=== PATIENT | female | born 1955 | race Caucasian/White ===

== ENCOUNTER 2020-01-17 20:21 | Observation (INO) | payer BC, OTHER ==
--- NOTE | 2020-01-17 20:51 | RAD ---
XR Chest 1 View Portable HISTORY: Chest pain and shortness of breath COMPARISON: None FINDINGS: The heart size is normal. The lungs are well expanded without focal areas of consolidation, pneumothorax or pleural effusions. IMPRESSION: No radiographic evidence of acute cardiopulmonary process.
[2020-01-17 20:54] LABS: #Basophils 0.1 thou/uL (0.0-0.2); #Eosinphils 0.2 thou/uL (0.0-0.7); #Lymphocytes 2.7 thou/uL (1.20-3.40); #Monocytes 0.6 thou/uL (0.11-0.59); #Neutrophils 6.2 thou/uL (1.40-6.50); %Basophils 0.6 % (0.0-1.0); %Eosinophils 2.2 % (0.0-10.0); %Lymphocytes 27.3 % (21.0-51.0); %Monocytes 6.5 % (0.0-10.0); %Neutrophils 63.4 % (42.0-75.0); Hemoglobin 12.8 g/dL (12.0-16.0); Mean Corpuscular HGB CONC 34.7 g/dL (32.0-36.0); Mean Corpuscular Volume 83.6 fL (78.0-98.0); Mean Platelet Volume 6.9 fL (7.4-10.4); Platelet Count 370 thou/uL (130-400); RBC Distribution Width 12.6 % (11.5-14.5); Red Blood Cell (RBC) Count 4.43 mill/uL (4.20-5.40); White Blood Cell (WBC) Count 9.7 thou/uL (4.8-10.8)
[2020-01-17 21:19] LABS: ALT (SGPT) 17 U/L (8-55); AST (SGOT) 17 U/L (5-34); Albumin 4.1 g/dL (3.4-4.8); Alkaline Phosphatase 95 U/L (40-110); Anion Gap 13 mmol/L (10-20); BUN (Urea Nitrogen) 23 mg/dL (9.8-20.1); Bilirubin, Total 0.3 mg/dL (0.2-1.2); CK (CPK) 83 U/L (29-168); Calc. Creatinine Clearance 0 mL/min (70-130); Calcium 8.8 mg/dL (7.8-10.44); Carbon Dioxide 24 mmol/L (23-31); Chloride 106 mmol/L (98-107); Estimated GFR-MDRD 68; Globulin 3.3 g/dL (2.4-3.5); Glucose 100 mg/dL (80-115); Lipase 26 U/L (8-78); Potassium 4.1 mmol/L (3.5-5.1); Protein, Total 7.4 g/dL (6.0-8.3); Sodium 139 mmol/L (136-145)
[2020-01-17 21:48] LABS: Bilirubin Negative (Negative); Blood, Urine 1+ (Negative); Clarity Clear (Clear); Glucose, Urine (Dipstick) Normal (Negative); Ketone, Urine Negative (Negative); Leukocyte 500 Leu/uL (Negative); Nitrite Negative (Negative); Protein, Urine (Dipstick) Negative (Neg-Trace); RBC/HPF 0-3 HPF (0-3); Squamous Epithelial 0-3 HPF (0-3); Urobilinogen Normal mg/dL (Less than 2); WBC/HPF 0-3 HPF (0-3)
[2020-01-17 21:49] LABS: Bacteria/HPF Rare-Few HPF (None Seen)
[2020-01-17] MEDS ORDERED: Nitroglycerin 2% Ointment 1 INCH/1 GM Packet ONE (23:22)
[2020-01-17] MEDS ORDERED: Morphine 2 MG/ML VIAL ONE (23:23)
[2020-01-18] MEDS ORDERED: Acetaminophen 650 MG Suppository PR PRN (00:03)
--- NOTE | 2020-01-18 00:40 | PDOC.HHP ---
Hospitalist HPI - History of Present Illness Chest pain History of Present Illness: Patient presents following an episode of severe chest pain that started at 6pm this afternoon. She states it occurred while she was at work. She describes 10/10 stabbing pain in the left side of her chest that was non-radiating. Denies any associated diaphoresis or breathlessness but reports feeling lightheaded. States her pain lasted 15 minutes. Her pain has been intermittent since arriving to the ED, alternating between a 3/10 and 5/10 in severity. It has fully resolved now that she has received morphine and nitro paste. Pain made worse with deep inspiration at times. No cough or hemoptysis. She recalls having left sided stabbing chest pain early last week that woke her from her sleep and lasted a few minutes. She doesnt remember what time it was and did not take anything for it. Denies any recent long car rides or flights. No cough or hemoptysis. No leg pain or swelling. Recently for the last week she has noticed breathlessness while speaking but no significant sob on exertion. She was brought in via EMS and had an EKG done prior to arrival that showed LBBB, felt to be chronic. She was given 1 nitro SL and 1 inch nitro paste. Reports having a history of a blocked coronary artery but has never had stents placed or had any surgical intervention. ROS: Reports a good appetite. Denies N/V. Has noticed urinary urgency for the last month. States she has incontinence if she doesnt get to the bathroom on time. She denies any saddle anesthesia/paraesthesia. States she has some associated left lower abdominal discomfort. No dysuria or hematuria. Has not had any fevers, chills or sweats. No flank pain. All other review of systems are negative. ED COURSE: EKG on arrival showed Normal sinus rhythm rate of 75 with left axis deviation left bundle branch block which is unchanged from August 2015. CXR: No radiographic evidence of acute cardiopulmonary process. FBC unremarkable. Lipase 26, CK 83, BUN 23, Creat 0.84, GFR 68. LFTs normal. Trop negative. BNP 16. Given morphine 2 mg IV in the ED as well as nitro-bid 1 inch. Admitted for ACS rule out. PAST MEDICAL HISTORY: 1. Asthma. 2. Sleep apnea. 3. Restless leg syndrome. 4. GERD. 5. Migraines. 6. CHF. 7. Hypothyroidism. 8. Hyperlipidemia. 9. Hypertension. PAST SURGICAL HISTORY: 1. Tubal ligation. 2. Hysterectomy. 3. Left rotator cuff surgery x 2. 4. Lymph nodes removed from abdomen due to concern for malignancy (mother had lymphoma), pathology results unremarkable per patient. 5. Left carpal tunnel surgery. SOCIAL HISTORY: Patient lives at home with her . Denies any tobacco use, alcohol consumption or drug use. She is fully independent. FAMILY HISTORY: Her mother is , had a history of lymphoma. ALLERGIES: 1. Iodine contrast. 2. She avoids aspirin due to advice given by Dr. Blackwell who performed multiple cauterizations in the past for severe epistaxis. 3. Ibuprofen. CURRENT MEDICATIONS: 1. Coreg 6.25 mg PO BID. 2. Lisinopril 20 mg PO daily. 3. Levothyroxin 100 mcg PO daily. 4. Albuterol. 5. Atorvastatin. - Exam General Appearance: NAD General - other findings: BP: 140/71, MAP: 94, HR: 77, Resp: 18, Temp: 98.1, Pain: 5, O2 sats 97%RA Eye: PERRL ENT: normocephalic atraumatic, no oropharyngeal lesions Neck: supple, symmetric, no lymphadenopathy Heart: RRR, no murmur, no gallops, normal peripheral pulses Respiratory: CTAB, no wheezes, no rales, no ronchi, normal chest expansion Respiratory - other findings: no reproducible chest wall tenderness Gastrointestinal: soft, non-tender, non-distended, normal bowel sounds, no guarding, no rigidity Extremities: no edema Skin: normal turgor, no lesions, no rashes Neurological: cranial nerve grossly intact, normal sensation to touch, no weakness Musculoskeletal: normal tone, normal strength, no muscle wasting Psychiatric: normal affect, normal behavior, A&O x 3 Hospitalist Results - Labs Result Diagrams: 01/17/20 20:43 01/17/20 20:43 Lab results: WBC 9.7 thou/uL (4.8-10.8) 01/17/20 20:43 Hgb 12.8 g/dL (12.0-16.0) 01/17/20 20:43 Hct 37.0 % (36.0-47.0) 01/17/20 20:43 MCV 83.6 fL (78.0-98.0) 01/17/20 20:43 Plt Count 370 thou/uL (130-400) 01/17/20 20:43 Neutrophils % 63.4 % (42.0-75.0) 01/17/20 20:43 Sodium 139 mmol/L (136-145) 01/17/20 20:43 Potassium 4.1 mmol/L (3.5-5.1) 01/17/20 20:43 Chloride 106 mmol/L (98-107) 01/17/20 20:43 Carbon Dioxide 24 mmol/L (23-31) 01/17/20 20:43 BUN 23 mg/dL (9.8-20.1) H 01/17/20 20:43 Creatinine 0.84 mg/dL (0.6-1.1) 01/17/20 20:43 Glucose 100 mg/dL (80-115) 01/17/20 20:43 Calcium 8.8 mg/dL (7.8-10.44) 01/17/20 20:43 Total Bilirubin 0.3 mg/dL (0.2-1.2) 01/17/20 20:43 AST 17 U/L (5-34) 01/17/20 20:43 ALT 17 U/L (8-55) 01/17/20 20:43 Alkaline Phosphatase 95 U/L (40-110) 01/17/20 20:43 Creatine Kinase 83 U/L (29-168) 01/17/20 20:43 Troponin I 0.020 ng/mL (< 0.028) 01/17/20 23:46 B-Natriuretic Peptide 16.6 pg/mL (0-100) 01/17/20 20:43 Serum Total Protein 7.4 g/dL (6.0-8.3) 01/17/20 20:43 Albumin 4.1 g/dL (3.4-4.8) 01/17/20 20:43 Lipase 26 U/L (8-78) 01/17/20 20:43 Urine Ketones Negative mg/dL (Negative) 01/17/20 21:30 Urine Blood 1+ (Negative) A 01/17/20 21:30 Urine Nitrite Negative (Negative) 01/17/20 21:30 Ur Leukocyte Esterase 500 Lora/uL (Negative) A 01/17/20 21:30 Urine RBC 0-3 HPF (0-3) 01/17/20 21:30 Urine WBC 0-3 HPF (0-3) 01/17/20 21:30 Ur Squamous Epith Cells 0-3 HPF (0-3) 01/17/20 21:30 Urine Bacteria Rare-Few HPF (None Seen) 01/17/20 21:30 - Radiology Interpretation Chest x-ray Status: report reviewed by me Hospitalist H&P A/P - Problem (1) Chest pain Code(s): R07.9 - CHEST PAIN, UNSPECIFIED Status: Acute Assessment and Plan: Cardiac monitoring. Continue to trend troponins. D-Dimer added on to rule out PE. Pain free at present. Repeat EKG if pain recurs to assess for dynamic changes. Cardiology consult given reports of occluded coronary artery without stents in the past. Lipid panel with AM labs. Continue nitro, ASA and statin. (2) Shortness of breath Code(s): R06.02 - SHORTNESS OF BREATH Status: Acute Assessment and Plan: Monitor O2 sats. As mentioned, d-dimer to rule out PE. No evidence of fluid overload/CHF exacerbation. Day team to decide of Echo indicated. (3) Urinary urgency Status: Acute Assessment and Plan: UA/UCx to rule out UTI. (4) CAD (coronary artery disease) Code(s): I25.10 - ATHSCL HEART DISEASE OF [place] CORONARY ARTERY W/O ANG PCTRS Status: Chronic Assessment and Plan: As above. Resume home meds once verified. (5) CHF (congestive heart failure) Code(s): I50.9 - HEART FAILURE, UNSPECIFIED Status: Chronic Assessment and Plan: BNP normal. Day team to decide if inpatient Echo needed. No signs or symptoms of CHF exacerbation. (6) Hypertension Code(s): I10 - ESSENTIAL (PRIMARY) HYPERTENSION Status: Chronic Assessment and Plan: Monitor BP. Reconcile home meds once verified. (7) GERD (gastroesophageal reflux disease) Code(s): K21.9 - GASTRO-ESOPHAGEAL REFLUX DISEASE WITHOUT ESOPHAGITIS Status: Acute Assessment and Plan: Famotidine 20 mg BID. (8) Asthma Code(s): J45.909 - UNSPECIFIED ASTHMA, UNCOMPLICATED Status: Chronic Assessment and Plan: Resume home meds. Monitor O2 sats. No s/s of Asthma exacerbation. (9) Hypothyroidism Code(s): E03.9 - HYPOTHYROIDISM, UNSPECIFIED Status: Chronic Assessment and Plan: Check TSH with am labs. Resume home meds once verified. - Plan Plan: CODE STATUS FULL Surrogate decision maker is her son: Vincent Allen. Discussed with attending who agrees with plan as above.
[2020-01-18] MEDS ORDERED: Morphine 2 MG/ML VIAL ONE ×2 (03:15→07:02)
[2020-01-18 03:20] LABS: Troponin I 0.012 ng/mL (< 0.028)
[2020-01-18 03:32] LABS: Anion Gap 16 mmol/L (10-20); BUN (Urea Nitrogen) 23 mg/dL (9.8-20.1); Calc. Creatinine Clearance 0 mL/min (70-130); Calcium 8.6 mg/dL (7.8-10.44); Carbon Dioxide 19 mmol/L (23-31); Cardiac Risk 6.2 (Less than 4.5); Chloride 107 mmol/L (98-107); Cholesterol 199 mg/dl (< 200 Desired); Estimated GFR-MDRD 70; Glucose 150 mg/dL (80-115); HDL Cholesterol 32 mg/dL (>60 Neg Risk); Potassium 3.9 mmol/L (3.5-5.1); Sodium 138 mmol/L (136-145); Triglycerides 412 mg/dL (Less than 150)
[2020-01-18] MEDS: Acetaminophen 325 MG TAB PO PRN (07:46)
[2020-01-18 08:46] LABS: #Basophils 0.1 thou/uL (0.0-0.2); #Eosinphils 0.3 thou/uL (0.0-0.7); #Lymphocytes 3.7 thou/uL (1.20-3.40); #Neutrophils 5.4 thou/uL (1.40-6.50); %Basophils 0.8 % (0.0-1.0); %Eosinophils 2.4 % (0.0-10.0); %Lymphocytes 35.6 % (21.0-51.0); %Monocytes 9.1 % (0.0-10.0); %Neutrophils 52.1 % (42.0-75.0); Hemoglobin 12.4 g/dL (12.0-16.0); Mean Corpuscular HGB CONC 32.8 g/dL (32.0-36.0); Mean Corpuscular Hemoglobin 28.3 pg (27.0-31.0); Mean Corpuscular Volume 86.2 fL (78.0-98.0); Mean Platelet Volume 6.8 fL (7.4-10.4); Platelet Count 357 thou/uL (130-400); RBC Distribution Width 12.7 % (11.5-14.5); Red Blood Cell (RBC) Count 4.39 mill/uL (4.20-5.40); White Blood Cell (WBC) Count 10.4 thou/uL (4.8-10.8)
[2020-01-18] MEDS ORDERED: HYDROcodone/Acetaminophen 5/325 mg Tablet PO PRN (08:58)
[2020-01-18] MEDS ORDERED: Aspirin 81 mg Enteric Coated Tablet PO SCH ×2 (09:00→10:15)
[2020-01-18 09:06] VITALS: BMI 27.9
[2020-01-18] MEDS ORDERED: Ketorolac Tromethamine 30 MG/ML VIAL IVP SCH (10:15)
[2020-01-18] MEDS ORDERED: Communication Order-Pharmacy FS SCH (10:30)
--- NOTE | 2020-01-18 11:12 | ULT ---
EXAM: US Gallbladder RUQ CLINICAL HISTORY: Right upper quadrant pain. Chest pain.. COMPARISON: None. FINDINGS: Pancreas: Obscured by bowel gas. Liver:Hepatic parenchyma has a normal echotexture. No hepatic masses or intrahepatic biliary dilatati on. Right hepatic lobe: 15.4 cm Gallbladder: No radiographic evidence of cholelithiasis. Gallbladder wall is not thickened. No perich olecystic fluid. Vela's sign:Not commented upon Portal Vein: Patent. Appropriate directional flow Bile ducts: Suboptimal evaluation the common bile duct Right kidney: No hydronephrosis. Right kidney measures 9.3 cm in length. Right renal cortical thinnin g. IMPRESSION: Sonographic evidence of cholelithiasis without definite sonographic evidence of cholecystitis. HIDA s can if clinically warranted.
[2020-01-18 15:48] LABS: SARS-CoV-2 MS2 Positive; SARS-CoV-2 N Gene Negative; SARS-CoV-2 S Gene Negative; SARS-CoV-2 by NAA Not Detected (NotDetected); SARS-CoV-2 orf1ab Negative
--- NOTE | 2020-01-18 15:53 | CON ---
DATE OF CONSULTATION: 01/18/2020 REASON FOR CONSULTATION: Chest pain with left bundle-branch block. HISTORY OF PRESENT ILLNESS: Ms. Allen is a 64-year-old woman, she said she did undergo cardiac evaluation many years ago at [facility] in [place]. She does not know exactly what was found. She did not undergo cardiac catheterization. The patient states for about 2 weeks, she has been having chest pain. It is left upper chest to the left of the midline. It seems to come and go and becomes extremely intense and resolved, but last night it got very severe and unbearable, came to the emergency room. EKG, was found to have left bundle-branch block, unknown duration. Cardiac enzymes were negative. She continues to have chest pain off and on. PAST MEDICAL HISTORY: 1. She has a history of mixed hyperlipidemia. 2. Hypertension. 3. Apparently, has known abnormality in her EKG, but she is not certain about that. 4. She also has high blood sugar, probably has some diabetes. ALLERGIES: SHE IS ALLERGIC TO IODINE, GETS "HIVES." HAS INTOLERANCE TO [place], WHERE SHE GETS NOSEBLEEDS. SHE HAS HAD NOSEBLEEDS CAUTERIZED IN THE PAST. SHE ALSO HAS BEEN TOLD SHE HAS GALLSTONES. MEDICATIONS: Please see nurse's notes, at home included; 1. Atorvastatin 10 mg a day. 2. Lisinopril. 3. Carvedilol. 4. Levothyroxine. SOCIAL HISTORY: No alcohol or tobacco. PHYSICAL EXAMINATION: GENERAL: This is a pleasant 64-year-old woman, in no distress. VITAL SIGNS: Blood pressure 164/77, pulse 64 and regular. LUNGS: Clear. CARDIAC: Normal S1, normal S2. I do not hear murmur, rub, or gallop. ABDOMEN: Soft and nontender. No hepatosplenomegaly. EXTREMITIES: Warm and dry. No clubbing or cyanosis. There is no edema. Peripheral pulses are present and normal. DIAGNOSTIC STUDIES: EKG shows a left bundle-branch block. Apparently, there is a previous EKG on file that shows a left bundle-branch block as well according to some handwritten notes. Cardiac enzymes are all normal. Laboratory; triglycerides 412, cholesterol 199, LDL cannot be calculated due to the high triglycerides. Blood sugar 150, may have glucose intolerance. ASSESSMENT: 1. Ongoing chest pain. 2. Left bundle-branch block, appears to be old. 3. Chest pain of uncertain etiology, possibly gastrointestinal, but it is difficult to tell at this point. 4. True iodine allergy. 5. History of gallstones, although the current pain does not really sound like gallstones. It is more left upper chest to the left of the midline. PLAN: 1. I think cardiac catheterization will be the most definitive test. Unfortunately, she is allergic to iodine with a true allergy. We will pretreat with steroids and Pepcid today and proceed to cardiac catheterization tomorrow. 2. We will do ultrasound of the gallbladder. 3. Echocardiogram. 4. Discussed risks of catheterization, stroke, heart attack, iodine allergy, loss of blood supply to leg or kidney, stent thrombosis, stent restenosis. All this was discussed. She understands and wishes to proceed. Also, we will give her a dose of aspirin today to see if she can tolerate that. Discussed that if a stent was placed, she would have to take aspirin as well as another medicine such as Plavix. Job ID: [id number]
--- NOTE | 2020-01-18 16:07 | PDOC.HOSPP ---
- Subjective Subjective: This is a 64 years old female, who was admitted last night for chest pain. Initial work-up found as he had left bundle. Patient underwent left heart cath many years ago at [facility] in [place]. Her serial enzymes have been negative. She still complaining of ongoing chest discomfort. Her d-dimer was negative. I have discussed with cardiology, Dr. Pabon. Plan for left heart cath tomorrow. Unfortunately patient is allergic to iodine. Patient will undergo premedications overnight, and plan for left heart cath tomorrow. She also also report that she had histories of gallstone. However her LFT was unremarkable. Her chest pain is located more substernal rather than epigastric or right upper quadrant. She denies any nausea or vomiting. - Objective Vital Signs & Weight: Vital Signs (12 hours) Temp Pulse Resp BP Pulse Ox 01/18/20 15:00 97.5 F L 64 18 141/65 H 98 01/18/20 11:52 97.6 F 60 18 126/60 100 01/18/20 07:28 98.1 F 64 20 164/77 H 99 Weight Weight 162 lb 11.2 oz Result Diagrams: 01/18/20 08:23 01/18/20 02:53 Hospitalist ROS - Medication Medications: Active Medications Generic Name Dose Route Start Last Admin Trade Name Freq PRN Reason Stop Dose Admin Acetaminophen 650 mg 01/18/20 00:03 01/18/20 07:46 Acetaminophen 325 Mg Tab PO 650 mg Q4H PRN Administration Headache/Fever/Mild Pain (1-3) Hydrocodone Bitart/Acetaminophen 1 tab 01/18/20 08:58 01/18/20 09:21 Hydrocodone/Acetaminophen 5/325 Mg Tablet PO 1 tab Q4H PRN Administration Moderate to Severe Pain (6-10) - Exam General Appearance: NAD, awake alert Eye: PERRL, anicteric sclera ENT: normocephalic atraumatic Neck: supple, symmetric Heart: RRR Respiratory: CTAB, no wheezes Gastrointestinal: soft, non-tender Extremities: no cyanosis, no clubbing Skin: normal turgor Neurological: cranial nerve grossly intact Musculoskeletal: normal tone Psychiatric: normal affect, normal behavior, A&O x 3 Hosp A/P - Plan The patient is a pleasant 64 years old female, who has significant past medical history as of hypothyroidism, dyslipidemia, hypertension, GERD, histories of gallstones, presented to the ED with acute onset of chest discomfort. Her serial enzymes so far have been negative x3. Her EKG showed left bundle branch block, however this was unchanged since 2016. Chest pain-characters of her chest pain suggestive of possible stable angina. --Serial enzymes negative x3. Patient has been evaluated by cardiology, plan for heart cath tomorrow. --However patient, history has history iodine allergy, she will require premedications overnight. --Appreciate Dr. Pabon Hx LLLB --no change since 2016 Hx Gallstones - LFT wnl --Follow GB US Dyslipidemia --cont statin therapy HTN, essential --BP stable
[2020-01-18] MEDS ORDERED: Albuterol Sulfate 2.5 mg/3 ml Neb NEB PRN (16:15)
[2020-01-18] MEDS: predniSONE 20 MG TAB PO SCH ×2 (16:39→23:26)
[2020-01-18] MEDS: Famotidine 20 MG TAB PO SCH ×2 (16:39→23:26)
[2020-01-18] MEDS: Morphine 4 MG/ML VIAL SLOW IVP PRN (16:39)
[2020-01-18] MEDS: Carvedilol 6.25 MG TAB PO SCH (20:28)
[2020-01-18] MEDS ORDERED: rOPINIRole HCl 1 MG TAB PO SCH (21:00)
[2020-01-19] MEDS ORDERED: Promethazine HCl 25 MG/ML VIAL IM/IV PRN (01:47)
[2020-01-19] MEDS: Acetaminophen 325 MG TAB PO PRN (02:02)
[2020-01-19 05:13] LABS: #Lymphocytes 1.3 thou/uL (1.20-3.40); #Monocytes 0.2 thou/uL (0.11-0.59); #Neutrophils 8.7 thou/uL (1.40-6.50); %Basophils 0.2 % (0.0-1.0); %Eosinophils 0.2 % (0.0-10.0); %Lymphocytes 12.6 % (21.0-51.0); %Monocytes 1.5 % (0.0-10.0); %Neutrophils 85.5 % (42.0-75.0); Hemoglobin 12.6 g/dL (12.0-16.0); Mean Corpuscular HGB CONC 32.2 g/dL (32.0-36.0); Mean Corpuscular Hemoglobin 27.2 pg (27.0-31.0); Mean Corpuscular Volume 84.3 fL (78.0-98.0); Mean Platelet Volume 7.1 fL (7.4-10.4); Platelet Count 388 thou/uL (130-400); RBC Distribution Width 12.5 % (11.5-14.5); Red Blood Cell (RBC) Count 4.62 mill/uL (4.20-5.40); White Blood Cell (WBC) Count 10.2 thou/uL (4.8-10.8)
[2020-01-19 05:20] LABS: Prothrombin Time 13.6 sec (12.0-14.7)
[2020-01-19 05:38] LABS: ALT (SGPT) 16 U/L (8-55); AST (SGOT) 16 U/L (5-34); Albumin 4.2 g/dL (3.4-4.8); Alkaline Phosphatase 96 U/L (40-110); Anion Gap 14 mmol/L (10-20); BUN (Urea Nitrogen) 23 mg/dL (9.8-20.1); Bilirubin, Total 0.4 mg/dL (0.2-1.2); Calc. Creatinine Clearance 70 mL/min (70-130); Calcium 9.1 mg/dL (7.8-10.44); Carbon Dioxide 23 mmol/L (23-31); Chloride 103 mmol/L (98-107); Estimated GFR-MDRD 59; Globulin 3.5 g/dL (2.4-3.5); Glucose 150 mg/dL (80-115); Magnesium 2.1 mg/dL (1.6-2.6); Potassium 4.2 mmol/L (3.5-5.1); Protein, Total 7.7 g/dL (6.0-8.3); Sodium 136 mmol/L (136-145)
[2020-01-19] MEDS: Famotidine 20 MG TAB PO SCH ×2 (05:39→11:06)
[2020-01-19] MEDS: predniSONE 20 MG TAB PO SCH ×2 (05:39→11:06)
[2020-01-19] MEDS: Carvedilol 6.25 MG TAB PO SCH (05:39)
[2020-01-19] MEDS ORDERED: Levothyroxine Sodium 100 MCG TAB PO SCH (06:00)
[2020-01-19] MEDS ORDERED: Levothyroxine Sodium 50 MCG TAB PO SCH (07:45)
[2020-01-19] MEDS ORDERED: Atorvastatin Calcium 10 MG TAB PO SCH (09:00)
[2020-01-19] MEDS ORDERED: Lisinopril 20 MG TAB PO SCH (09:00)
[2020-01-19] MEDS: Morphine 4 MG/ML VIAL SLOW IVP PRN ×2 (10:13→14:13)
[2020-01-19] MEDS ORDERED: Lidocaine 1% (PF) 30 ML VIAL ONE (11:26)
[2020-01-19] MEDS ORDERED: Iopamidol 370 76% 100 ML VIAL ONE (11:43)
[2020-01-19] MEDS ORDERED: Fentanyl 100 MCG/2 ML VIAL ONE (12:21)
[2020-01-19] MEDS ORDERED: Midazolam HCl 2 mg/2 ml Vial ONE ×2 (12:22→12:48)
[2020-01-19] MEDS ORDERED: Metoprolol Tartrate 5 MG/5 ML VIAL ONE (12:42)
[2020-01-19] MEDS ORDERED: Sodium Chloride 0.9% 200 ML IV PRN (12:51)
[2020-01-19] MEDS ORDERED: Acetaminophen/Codeine 30-300mg Tablet PO PRN ×2 (12:51)
[2020-01-19] MEDS ORDERED: Nitroglycerin 0.4 MG TAB (25 Tab Bottle) SL PRN (12:51)
--- NOTE | 2020-01-19 15:56 | PDOC.HOSPP ---
- Subjective Subjective: pt seen examined at bedside. No acute events overnight. She reports some abdominal discomfort, but no vomiting. Her TSH level low. We have adjusted dose of her levothyroxine. Plan for heart cath later today. Abdominal ultrasound reviewed, positive for gallstone. No acute cholecystitis. LFT remained normal. - Objective Vital Signs & Weight: Vital Signs (12 hours) Temp Pulse Resp BP BP BP Pulse Ox 01/19/20 12:58 77 18 130/60 97 01/19/20 11:56 97.7 F 85 16 150/96 H 95 01/19/20 07:43 97.6 F 71 16 136/69 94 L 01/19/20 05:40 144/70 H 01/19/20 05:39 144/70 H 01/19/20 04:00 97.7 F 68 16 144/70 H 94 L Weight Weight 162 lb 11.2 oz I&O: 01/18/20 01/19/20 01/20/20 06:59 06:59 06:59 Intake Total 1434 Balance 1434 Result Diagrams: 01/19/20 04:25 01/19/20 04:25 Radiology Reviewed by me: Yes EKG Reviewed by me: Yes Hospitalist ROS - Medication Medications: Active Medications Generic Name Dose Route Start Last Admin Trade Name Freq PRN Reason Stop Dose Admin Acetaminophen 650 mg 01/18/20 00:03 01/19/20 02:02 Acetaminophen 325 Mg Tab PO 650 mg Q4H PRN Administration Headache/Fever/Mild Pain (1-3) Hydrocodone Bitart/Acetaminophen 1 tab 01/18/20 08:58 01/18/20 09:21 Hydrocodone/Acetaminophen 5/325 Mg Tablet PO 1 tab Q4H PRN Administration Moderate to Severe Pain (6-10) Atorvastatin Calcium 10 mg 01/19/20 09:00 01/19/20 05:40 Atorvastatin Calcium 10 Mg Tab PO 10 mg DAILY BRANDON Administration Carvedilol 6.25 mg 01/18/20 21:00 01/19/20 05:39 Carvedilol 6.25 Mg Tab PO 6.25 mg BID BRANDON Administration Lisinopril 20 mg 01/19/20 09:00 01/19/20 05:40 Lisinopril 20 Mg Tab PO 20 mg DAILY BRANDON Administration Morphine Sulfate 4 mg 01/18/20 10:39 01/19/20 14:13 Morphine 4 Mg/Ml Vial SLOW IVP 4 mg Q4H PRN Administration Moderate to Severe Pain (6-10) Promethazine HCl 12.5 mg 01/19/20 01:47 01/19/20 02:02 Promethazine Hcl 25 Mg/Ml Vial IM/IV 12.5 mg Q6H PRN Administration Nausea/Vomiting Ropinirole HCl 1 mg 01/18/20 21:00 01/18/20 20:28 Ropinirole Hcl 1 Mg Tab PO 1 mg HS BRANDON Administration Hosp A/P - Plan The patient is a pleasant 64 years old female, who has significant past medical history as of hypothyroidism, dyslipidemia, hypertension, GERD, histories of gallstones, presented to the ED with acute onset of chest discomfort. Her serial enzymes so far have been negative x3. Her EKG showed left bundle branch block, however this was unchanged since 2016. Chest pain-characters of her chest pain suggestive of possible stable angina. --Serial enzymes negative x3. Patient has been evaluated by cardiology, plan for heart cath today --cont current mgt, appreciate Dr. Pabon Hx LLLB --no change since 2016 Hx Gallstones - LFT wnl --US abdominal - no evidence of cholecystitis Dyslipidemia --cont statin therapy HTN, essential --BP stable Hypothyroidism --TSH low, decrease levothyroxine to 100 mcg to 50 mcg. Follow up with PCP to rpt TSH in 4-6 weeks
[2020-01-19 16:25] VITALS: TEMP 96.7
[2020-01-19 16:39] VITALS: BP 133/63
--- NOTE | 2020-01-19 22:31 | DIS ---
DATE OF ADMISSION: 01/17/2020 DATE OF DISCHARGE: 01/19/2020 CONSULTATIONS: Cardiology, Dr. Pabon. PROCEDURE PERFORMED: Left heart catheterization, normal coronary artery. DISCHARGE DIAGNOSES: 1. Chest pain, unclear etiology, noncardiac. 2. History of left bundle branch block. 3. History of gallstones. 4. Dyslipidemia. 5. Hypertension. 6. Hypothyroidism. LABORATORY DATA AND IMAGING STUDY: WBC 10.0, hemoglobin 12.6, hematocrit 39.0, platelets 388. INR 1.0. D-dimer less than 0.27. Sodium is 136, potassium 4.2, chloride 103, carbon dioxide 23, BUN 14, creatinine 0.93. Troponins negative x3. LFT; ALT within normal limits. LDL 199. TSH 0.0189. COVID PCR was negative. Abdominal ultrasound sonographic evidence of cholelithiasis without definitive sonographic evidence of cholecystitis. Chest x-ray, no radiographic evidence of acute cardiopulmonary process. HISTORY OF PRESENT ILLNESS AND BRIEF HOSPITAL COURSE: The patient is a pleasant 64-year-old female, who has significant past medical history of asthma, sleep apnea, restless legs syndrome, GERD, migraine headaches, congestive heart failure, hypothyroidism, dyslipidemia, hypertension, who presented to the ED with complaining of substernal chest pain. Her EKG show left bundle branch block, which has no change since August of 2015. She was subsequently admitted to hospice service for further evaluation. She was monitored on tele. Her serial enzymes negative x3. Given her ongoing chest pain, Cardiology was consulted, the patient was seen by Dr. Pabon and subsequently recommend left heart catheterization. She also had no history of gallstones. However, her LFT within normal limits. Her abdominal ultrasound was negative for acute cholecystitis. The patient underwent premedication and subsequently underwent left heart catheterization which is completely negative. At this time, her symptom has improved, her chest pain is noncardiac. The patient was discharged home with PPI and muscle relaxer. The patient was advised to follow up with her PCP and return to ED if her symptoms recurs or worsen. DISPOSITION: The patient is stable to discharge home. ACTIVITY: As tolerated. DIET: Cardiac diet. FOLLOWUP CARE: The patient to follow up with her PCP in 1-2 weeks. PHYSICAL EXAMINATION: VITAL SIGNS: Temperature is 96.7, respiratory rate 18, pulse 75, she is saturating 99% on room air, blood pressure is 144/62. GENERAL APPEARANCE: The patient appears to be comfortable. She is not in acute distress. HEENT: Normocephalic, atraumatic. Mucous membranes moist. NECK: Supple. No lymphadenopathy. No JVD. CARDIOVASCULAR: Regular rate and rhythm. S1 and S2 noted. No murmur. PULMONOLOGY: Clear to auscultation. ABDOMEN: Soft, nontender, nondistended. Positive bowel sounds. MUSCULOSKELETAL: No joint pain or tenderness. No lower extremity edema NEUROLOGIC: Cranial 2 through 12 grossly intact. No focal weakness. PSYCHIATRIC: The patient is alert, oriented x3 with normal affect. DISCHARGE MEDICATIONS: 1. It should be noted that her TSH is low, we have decreased her levothyroxine from 100 mcg to 50 mcg daily, the patient was advised to follow up with her PCP and recheck her TSH in 4-6 weeks and adjust accordingly. The rest of her home medication remaining unchanged. 2. We also prescribe her a prescription for Protonix 40 mg p.o. at bedtime. 3. Flexeril 10 mg t.i.d. p.r.n. for spasm. Continue usual home medications include; 1. Coreg 6.25 mg b.i.d. 2. Lipitor 10 mg p.o. daily. 3. Albuterol inhaler p.r.n. q.6h for wheezing. 4. Requip 1 mg at bedtime. 5. Lisinopril 20 mg p.o. daily. Thank you for allowing to participate in this patient's care. Job ID: [id number]
[2020-01-20] MEDS ORDERED: Levothyroxine Sodium 50 MCG TAB PO SCH (06:00)
== END 2020-01-19 17:16 | disposition home or self-care (01) ==
LOC: ERS 20:21 → ERHOLD 21:42 → 2SW 01-18 08:02
PROVIDERS: ADMIT Family Medicine; ATTEND Family Medicine
PROC: 4A023N7 Measurement of Cardiac Sampling and Pressure, Left Heart, Percutaneous Approach (ICD-10-PCS; principal; 2020-01-19)
DX: R07.89 Other chest pain (principal); I44.7 Left bundle-branch block, unspecified; I11.0 Hypertensive heart disease with heart failure; I50.9 Heart failure, unspecified; E03.9 Hypothyroidism, unspecified; E78.00 Pure hypercholesterolemia, unspecified; E78.5 Hyperlipidemia, unspecified; J45.909 Unspecified asthma, uncomplicated; K21.9 Gastro-esophageal reflux disease without esophagitis; G25.81 Restless legs syndrome; Z79.899 Other long term (current) drug therapy; Z88.5 Allergy status to narcotic agent; Z88.6 Allergy status to analgesic agent; Z91.041 Radiographic dye allergy status; Z20.828 Contact with and (suspected) exposure to other viral communicable diseases
CPT/HCPCS: 36415; 71045; 76705; 76942; 80048; 80053; 80061; 81003; 81015; 82550; 83690; 83735; 83880; 84443; 84484; 85025; 85379; 85610; 87635; 93005; 93306; 93458; 96374; 96375; 96376; 99152; G0378; J1644; J1885; J2001; J2250; J2270; J2550; J3010; J7512; Q9967; U0003